=== PATIENT | female | born 1940 | race Caucasian/White ===

== ENCOUNTER 2019-08-23 10:05 | Day surgery (SDC) | payer BC ==
[2019-08-23] VITALS (11 sets, daily range): BP systolic 97–144; BP diastolic 42–62
[~2019-08-23] VITALS: Ht 165.1 cm; Wt 95.4 kg
[2019-08-23] MEDS ORDERED: diphenhydrAMINE 25mg capsule PO PRN (10:30)
[2019-08-23] MEDS ORDERED: normal saline 1,000 ML IV SCH (10:30)
[2019-08-23] MEDS ORDERED: ROPI2TAB PO (11:10)
[2019-08-23] MEDS ORDERED: CHOL400C8 PO (11:10)
[2019-08-23] MEDS ORDERED: OLME40TA13 PO (11:10)
[2019-08-23] MEDS ORDERED: CLIN-15 PO (11:10)
[2019-08-23] MEDS ORDERED: FOLI1TAB50 PO (11:10)
[2019-08-23] MEDS ORDERED: TAM50T PO (11:10)
[2019-08-23] MEDS ORDERED: ASCO1TAB42 PO (11:10)
[2019-08-23] MEDS ORDERED: CALC-459 PO (11:10)
[2019-08-23] MEDS ORDERED: FOLI0.4T2 PO (11:10)
[2019-08-23] MEDS ORDERED: SPIR25TA5 PO (11:10)
[2019-08-23] MEDS ORDERED: RISE5TAB PO (11:10)
[2019-08-23 11:16] LABS: ALBUMIN 3.8 G/DL (3.4-5.0); ANION GAP 7 (8-16); BLOOD UREA NITROGEN 31 MG/DL (7-18); BUN/CREATININE RATIO 25.2 (6.6-38.0); CALCIUM 10.2 MG/DL (8.5-10.1); CHLORIDE 104 MMOL/L (99-107); CREATININE 1.23 MG/DL (0.40-0.90); GLUCOSE 98 MG/DL (70-104); MAGNESIUM 2.1 MG/DL (1.5-2.4); POTASSIUM 5.1 MMOL/L (3.5-5.1); SODIUM 138 MMOL/L (135-145); eGFR 42 ML/MIN
[2019-08-23 11:28] LABS: BASOPHILS # (AUTO) 0.1 X10'3 (0-0.2); EOSINOPHILS # (AUTO) 0.1 X10'3 (0-0.9); EOSINOPHILS % (AUTO) 1.3 % (0-6); HEMATOCRIT 43.4 % (35.0-45.0); HEMOGLOBIN 14.6 g/dl (12.0-16.0); LYMPHOCYTES # (AUTO) 1.3 X10'3 (1.1-4.8); LYMPHOCYTES % (AUTO) 13.8 % (21-51); MEAN CORPUSCULAR HEMOGLOBIN 31.6 PG (27.0-31.0); MEAN CORPUSCULAR HGB CONC 33.6 g/dL (33.0-36.5); MEAN CORPUSCULAR VOLUME 94.2 FL (78-98); MONOCYTES # (AUTO) 0.7 X10'3 (0-0.9); MONOCYTES % (AUTO) 7.1 % (2-12); NEUTROPHILS # (AUTO) 7.1 X10'3 (1.8-7.7); NEUTROPHILS % (AUTO) 76.8 % (42-75); PLATELET COUNT 259 X10'3 (140-440); RED BLOOD COUNT 4.61 X10'6 (4.20-5.60); RED CELL DISTRIBUTION WIDTH 13.9 % (11.5-14.5); WHITE BLOOD COUNT 9.3 X10'3 (4.5-11.0)
[2019-08-23] MEDS ORDERED: fentaNYL/PF 50MCG/1 ML 2ML syringe ONE (14:33)
[2019-08-23] MEDS ORDERED: LIDOcaine 1% (10mg/ml)w/preservative injection 20ml MDV ONE (14:34)
[2019-08-23] MEDS ORDERED: midazolam 2 mg/2 ml injection ONE ×2 (14:34→15:05)
[2019-08-23] MEDS ORDERED: iohexol 350MG/ML 100ml bottle IV ONE (14:34)
[2019-08-23] MEDS ORDERED: iohexol 350 MG/ML 50ML vial IV ONE (14:34)
[2019-08-23] MEDS ORDERED: HYDROcodone/acetaminophen 10/325mg tab PO PRN (15:55)
[2019-08-23] MEDS ORDERED: acetaminophen 325mg tablet PO PRN (15:55)
[2019-08-23] MEDS ORDERED: HYDROcodone/acetaminophen 5mg/325mg tablet PO PRN (15:55)
[2019-08-23] MEDS ORDERED: OXAZEpam 15mg capsule PO PRN (15:55)
[2019-08-23] MEDS ORDERED: normal saline 1000ml 1,000 ML IV SCH (15:55)
--- NOTE | 2019-08-23 16:54 | NUR ---
Bedside Report from Naima CORREA @ 1415 -pt waiting to go into procedure-pt sitting bedside D/T back discomfort Addendum: 08/23/19 at 1657 by Kira Long RN Amended: Links added.
== END 2019-08-23 19:10 | disposition home or self-care (01) ==
LOC: SSTAY O 10:05
PROVIDERS: ATTEND Internal Medicine Cardiovascular Disease
DX: R94.39 Abnormal result of other cardiovascular function study (principal); R07.89 Other chest pain; I42.0 Dilated cardiomyopathy; E66.01 Morbid (severe) obesity due to excess calories; Z68.35 Body mass index [BMI] 35.0-35.9, adult; G89.29 Other chronic pain; Z90.49 Acquired absence of other specified parts of digestive tract; Z90.710 Acquired absence of both cervix and uterus; Z98.890 Other specified postprocedural states; Z88.0 Allergy status to penicillin; Z88.8 Allergy status to other drugs, medicaments and biological substances; Z88.5 Allergy status to narcotic agent; Z88.1 Allergy status to other antibiotic agents; Z95.0 Presence of cardiac pacemaker
CPT/HCPCS: 36415; 80048; 83735; 85025; 85610; 93458; 99152; C1769; C1894; J1644; J2001; J2250; J3010; J7030; Q0163; Q9967; 93005; 99153; A4620; A6258; C1760